=== PATIENT | male | born 1950 | race Caucasian/White ===

== ENCOUNTER 2025-04-12 12:49 | Emergency (ER) | payer OTHER, SELFPAY ==
[2025-04-12 12:51] VITALS: BP 123/80
[2025-04-12 13:08] LABS: Urine Character Mucous (Clear)
[2025-04-12 14:27] LABS: Urine Red Blood Cell >100 /HPF (0-2)
[2025-04-12 16:10] VITALS: BP 158/83
--- NOTE | 2025-04-12 16:10 | ED.GENMED ---
History of Present Illness
General
Chief Complaint: Male Genito-Urinary Symptoms
Source: patient
Time Seen by Provider: 04/12/25 15:50
History of Present Illness
History of Present Illness:
74-year-old male with past medical history of kidney stones presenting to the emergency department for evaluation of hematuria noting that he is passed multiple clots over the last 3 days with no other associated symptoms other than maybe some
urinary frequency today. Patient states that this does seem a little bit different than his history of kidney stones as he has never had the amount of clots before. Denies any fevers, chills, rigors, back or flank pain, nausea or vomiting. A
couple of weeks ago was started on an aspirin by his neurologist, patient and son unable to elaborate further as to why this was started. Denies any testicular pain or edema.
Past History
Past History
ED Past Medical History: Other (kidney stones)
ED Past Surgical History: None
Social History
Tobacco: Former smoker (Quit over 50 years ago)
Alcohol: None
Drug: None
Personal:
Living: with family
Review of Systems
Review of Systems
All Other Systems: ROS reviewed and negative except as documented in HPI and ROS
Phy Exam
Physical Exam
Physical Exam:
GENERAL: Alert , in no apparent distress
EYE: clear conjunctiva b/l
HEAD: NCAT
ENT: mmm.
CARDIAC: Regular rate and rhythm .
LUNGS: Clear breath sounds bilaterally, no acute respiratory distress, no wheezes/rales/rhonchi
ABDOMEN: Soft, without focal tenderness, no r/g, no cvat
NEUROLOGICAL: Alert and oriented
SKIN: Warm and dry, skin intact.
MUSCULOSKELETAL: well perfused.
PSYCH: Normal and appropriate interaction.
Scores
Heart Failure Risk
Heart Failure Risk Score: Not Applicable
Heart Score for Chest Pain Patients
STEMI patient?: Not applicable
Withdrawal Assessment of Alcohol
Withdrawal Assessment Completed?: Not applicable
Course
Orders/Labs/Results
Orders:
Orders
04/12/25 12:58
UA Reflex to Culture [Urinalysis Reflex To Culture] Urgent
Date Specimen was Collected: 04/12/25
Time Specimen was Collected: 12:54
Urine Microscopic Reflex Cult Urgent
Urine Culture Urgent
MARCOS Source: U
Specimen Description:
Date Specimen was Collected: 04/12/25
Time Specimen was Collected: 12:54
04/12/25 15:51
CT Abd/pel Without Iv Or Oral Urgent
Comment:
Reason For Exam: 3 days hematuria
04/12/25 16:18
Basic Metabolic Panel Urgent
Complete Blood Count/With Diff Urgent
PTT Urgent
Prothrombin Time Urgent
Abnormal Lab Results
04/12/25 04/12/25
12:58 16:18
Absolute Lymphs (auto) 1.0 L 10^3/uL
(1.2-3.4)
Neutrophils % 79.9 H %
(42.2-75.2)
Lymphocytes % 12.6 L %
(20.5-51.1)
Glucose 106 H mg/dl
(70-99)
Ur Occult Blood Reflex 4+ A
(Negative)
Leukocyte Esterase Rfl 2+ A
(Negative)
Urine RBC >100 A /HPF
(0-2)
Urine Albumin (Reflex) 3+ A
(Neg - Trace)
04/12/25 16:18
04/12/25 16:18
Vital Signs
Initial and Last Documented VS:
Initial Vital Signs
Temp Pulse Resp BP Pulse Ox
98.2 F 75 16 123/80 98
04/12/25 12:51 04/12/25 12:51 04/12/25 12:51 04/12/25 12:51 04/12/25 12:51
Last Documented Vital Signs
Temp Pulse Resp BP Pulse Ox
98.2 F 75 16 158/83 98
04/12/25 12:51 04/12/25 12:51 04/12/25 12:51 04/12/25 16:10 04/12/25 16:20
MDM/Problems Addressed
Differential Diagnosis Includes:
Nephrolithiasis/ureterolithiasis
Urinary tract infection
Malignancy
Hemorrhagic cystitis
BPH
Prostatitis
Anemia
MDM/Problems Addressed:
74-year-old male presenting to the ER for evaluation of hematuria since Sunday, questionable urinary frequency today although patient does note he has been drinking more water than usual. Recently started on aspirin for unknown reasons. History of
multiple kidney stones but without pain here. Will check labs and CT scan, urinalysis obtained from triage shows 4+ microscopic blood, greater than 100 RBCs, 2+ leukocytes, culture pending.
*Radiology
Radiology exam reviewed: radiology read reviewed
*Pulse Oximetry
SaO2: 98
Oxygen Mode of Delivery: Room air
Patient hypoxic: no
*Critical Care Note
Total Time (30-74mins, 75-104mins- exclusive of procedures): Not Applicable
Patient Management
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
Escalation/DeEscalation of care consider admission/obs:
CT findings noted for bilateral nephrolithiasis. Other findings discussed with patient and provided with printout of the CT scan reports. I did notify urology and provided the patient with the urology information for close follow-up. Patient and
family aware of return precautions to the ER. Patient is otherwise stable discharge home.
ED Attending Note
-
Portions of this chart may have been created with voice recognition software.� Occasional wrong word or��sound alike� substitutions may have occurred due to the inherent limitations of voice recognition software.
Discharge Plan
Departure
Patient Disposition: Home (Routine Discharge)
Date of Disposition: 04/12/25
Time of Disposition: 18:18
Patient with high blood pressure during this ER visit?: Yes
Discharge Problem:
Hematuria
Instructions: Blood in the Urine (Hematuria), Adult (DC)
Prescriptions:
New
cefdinir 300 mg capsule
300 mg PO BID 7 Days Qty: 14 0RF
Referrals:
David Mcallister MD [Family Provider, Internal Medicine]
Ajay Ya MD [Active, Urology]
Interventions
Interventions:
*Risk Screen - Suicide Last Done: 04/12/25 12:51
*General Assessment Last Done: 04/12/25 12:51
*Neglect/Abuse Screening Last Done: 04/12/25 12:51
*ED- Fall Risk Assessment Last Done: 04/12/25 16:20
*ED COVID-19 Vaccine History Last Done: 04/12/25 16:20
*Nursing Disposition Last Done: 04/12/25 18:50
ED-Male Genitourinary Assessment Last Done: 04/12/25 16:20
Discharge Date and Time
Discharge Date/Time: 04/12/25 18:50
Print Language: CROATIAN
[2025-04-12 16:19] VITALS: BMI 17.8
[2025-04-12 16:31] LABS: Hematocrit 44.8 % (39.0-52.0); Hemoglobin 15.7 g/dL (13.0-18.0); Mean Corp Hgb Conc. 35.0 g/dL (33.0-37.0); Mean Corpuscular Volume 84.7 fL (80.0-94.0); Nucleated Red Blood Cells % 0 % (-); Platelet Count 177 10^3/uL (130-400); Red Cell Dist. Width 13.2 % (11.5-14.5)
[2025-04-12 16:40] LABS: APTT 25.7 Sec (23.4-35.0); INR 1.01; PT 13.6 Sec (11.4-14.6)
[2025-04-12 16:45] LABS: Blood Urea Nitrogen 17 mg/dl (9-20); Calcium 10.0 mg/dl (8.4-10.2); Carbon Dioxide 30 mmol/L (22-30); Chloride 105 mmol/L (98-107); Estimated Creatinine Clearance 59 ml/min; Glucose 106 mg/dl (70-99); Potassium 5.1 mmol/L (3.5-5.1); Sodium 140 mmol/L (135-145); eGFR > 60.00
== END 2025-04-12 18:50 | disposition home or self-care (01) ==
LOC: EMR 12:49
PROVIDERS: Emergency Medicine; Physician Assistant Medical; EMERGENCY PHYSICIAN Emergency Medicine; FAMILY PHYSICIAN Internal Medicine
DX: R31.9 Hematuria, unspecified (principal); R35.0 Frequency of micturition; R03.0 Elevated blood-pressure reading, without diagnosis of hypertension; Z87.442 Personal history of urinary calculi; Z87.891 Personal history of nicotine dependence
CPT/HCPCS: 99284; 74176; 80048; 81003; 81015; 85025; 85610; 85730; 87086

== ENCOUNTER 2025-05-22 23:27 | Inpatient (IN) | payer OTHER, SELFPAY ==
[2025-05-22 14:30] VITALS: BP 111/80
[2025-05-22 14:49] LABS: Hematocrit 47.5 % (39.0-52.0); Hemoglobin 16.3 g/dL (13.0-18.0); Mean Corp Hgb Conc. 34.3 g/dL (33.0-37.0); Mean Corpuscular Volume 83.0 fL (80.0-94.0); Nucleated Red Blood Cells % 0 % (-); Platelet Count 301 10^3/uL (130-400); Red Cell Dist. Width 12.4 % (11.5-14.5)
--- NOTE | 2025-05-22 18:14 | ED.GENMED ---
History of Present Illness
General
Chief Complaint: Abdominal Symptoms
Source: patient and family
Exam Limitations: none
Time Seen by Provider: 05/22/25 17:58
History of Present Illness
History of Present Illness:
74yoM with a history of hypertension, hyperlipidemia, and a prior colorectal abscess presenting with his for evaluation of diarrhea. Symptoms have been ongoing for the past 3 weeks. He initially started with constipation which transition to
diarrhea. He is having 15-20 watery bowel movements a day. He started to notice a small amount of blood mixed in with his stool yesterday. He is also having decreased appetite has lost 10 pounds unintentionally. Patient reports a 'feeling' in
his lower abdomen but denies any overt pain. 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 Family is worried that he has this again. He denies any fevers, chills, vomiting, urinary symptoms.
Past History
Past History
ED Past Medical History: Other (kidney stones)
ED Past Surgical History: None
Social History
Tobacco: Former smoker (Quit over 50 years ago)
Alcohol: None
Drug: None
Personal:
Living: with family
Phy Exam
General Physical Exam
General Presentation: well appearing and no apparent distress
General Skin: warm and dry
General Habitus: normal
General Mental: alert
ENT Exam
ENT Exam: normocephalic
Cardiovascular Exam
Cardiovascular Exam: regular rate/rhythm
Pulmonary Exam
Pulmonary Exam: lungs clear, no respiratory distress, no rales, no crackles, no rhonchi and no wheezing
Gastrointestinal Exam
Gastrointestinal Exam: non tender, soft and non distended
Neurological Exam
Neurological Exam: alert
Pranav Coma Scale
Eye Opening: Spontaneous
Verbal Response: Oriented
Motor Response: Obeys Commands
GCS Total Score: 15
Skin Exam
Skin Exam: normal color and warm/dry
Psychiatric Exam
Psychiatric Exam: normal mood/affect
Course
Orders/Labs/Results
Orders:
Orders
05/22/25 14:42
Complete Blood Count/With Diff Urgent
05/22/25 15:17
C difficile Antigen & Toxins Urgent
MARCOS Source: Feces/Stool
Specimen Description:
Date Specimen was Collected: 05/22/25
Time Specimen was Collected: 14:46
Stool Culture Urgent
MARCOS Source: Feces/Stool
Specimen Description:
Date Specimen was Collected: 05/22/25
Time Specimen was Collected: 14:46
05/22/25 18:13
Add On- LAB Urgent
Tests Added?: mag, lipase
CT Abd/pel W Iv And Oral Contr Urgent
Comment:
Reason For Exam: diarrhea, lower abd discomfort
0.9% Sodium Chloride 500 ml [Nss] 500 ml IV BOLUS
Iohexol [Omnipaque] See Protocol PO NOW STA
05/22/25 18:22
Insulin Human Regular [Novolin R] 5 units IV NOW STA
05/22/25 18:43
Comprehensive Metabolic Panel Urgent
Lactate Level [Lactic Acid] Urgent
Lipase Urgent
Comment: ADD ON
Magnesium Urgent
Comment: ADD ON
05/22/25 22:20
0.9% Sodium Chloride 500 ml [Nss] 500 ml IV BOLUS
Piperacillin/Tazo 3.375 Gram [Zosyn] 3.375 gram in 50 ml IV NOW
05/22/25 23:08
Calprotectin, Fecal [S] Urgent
Norovirus by PCR Urgent
MARCOS Source: Feces/Stool
Specimen Description:
Ova & Parasites Giardia/Crypto AG [Giardia/Cryptosporidium Ag] Routine
MARCOS Source: Feces/Stool
Specimen Description:
Stool For WBC Urgent
MARCOS Source: Feces/Stool
Specimen Description:
Abnormal Lab Results
05/22/25 05/22/25
14:42 18:43
WBC 16.1 H 10^3/uL
(4.8-10.8)
Abs Immat Gran (auto) 0.1 H 10^3/uL
(0-0.05)
Absolute Neuts (auto) 13.5 H 10^3/uL
(1.4-6.5)
Absolute Monos (auto) 1.0 H 10^3/uL
(0.1-0.6)
Immature Gran % 0.6 H %
(0-0.5)
Neutrophils % 83.7 H %
(42.2-75.2)
Lymphocytes % 8.7 L %
(20.5-51.1)
Sodium 134 L mmol/L
(135-145)
Carbon Dioxide 18 L mmol/L
(22-30)
Glucose 101 H mg/dl
(70-99)
Total Protein 5.9 L g/dl
(6.3-8.2)
Lipase 22 L U/L
(23-300)
05/22/25 14:42
05/22/25 18:43
Vital Signs
Initial and Last Documented VS:
Initial Vital Signs
Temp Pulse Resp BP Pulse Ox
97.6 F 97 16 111/80 98
05/22/25 14:30 05/22/25 14:30 05/22/25 14:30 05/22/25 14:30 05/22/25 14:30
Last Documented Vital Signs
Temp Pulse Resp BP Pulse Ox
98.2 F 88 16 119/75 97
05/22/25 18:47 05/22/25 18:47 05/22/25 18:47 05/22/25 22:29 05/22/25 22:31
MDM/Problems Addressed
Differential Diagnosis Includes:
74yoM here with diarrhea x 3 weeks with weight loss and decreased appetite. Hx of colorectal abscess in 2021 which required colostomy which has since been reversed. VSS. He is non-toxic appearing and abdominal exam is benign. Differential diagnosis
includes but is not limited to: viral illness, C.diff, other infectious diarrhea, dehydration
Initial ED plan: Labs obtained in triage reveal a WBC of 16.1. Remainder of labs overall unremarkable. C.diff testing is negative and stool culture is pending. Will add lactic acid and CT abdomen with IV/p.o. contrast. IV fluid bolus.
*Pulse Oximetry
SaO2: 98
Oxygen Mode of Delivery: Room air
Patient hypoxic: no (98%)
*Critical Care Note
Total Time (30-74mins, 75-104mins- exclusive of procedures): Not Applicable
Update Note
Update Note:
CT shows pancolitis. No evidence of pneumatosis and lactate within normal limits. IV Zosyn ordered and patient admitted for further evaluation and management.
ED Attending Note
-
Portions of this chart may have been created with voice recognition software.� Occasional wrong word or��sound alike� substitutions may have occurred due to the inherent limitations of voice recognition software.
Discharge Plan
Departure
Patient Disposition: Admit
Date of Disposition: 05/22/25
Time of Disposition: 22:22
Presentation/result/management discussed w/ accepting MD/DO: Hospitalist
Discharge Problem:
Pancolitis
Prescriptions:
No Action
atorvastatin 40 mg Tablet
40 mg PO DAILY
donepezil [Aricept] 10 mg Tablet
10 mg PO HS
amlodipine 5 mg Tablet
5 mg PO DAILY
bupropion HCl 150 mg Tablet Extended Release 24 Hr
150 mg PO DAILY
B12 5,000-100 mcg Lozenge
1 aleja SUBLINGUAL DAILY
Referrals:
David Mcallister MD [Family Provider, Internal Medicine]
Interventions
Interventions:
*Risk Screen - Suicide Last Done: 05/22/25 14:30
*General Assessment Last Done: 05/22/25 20:00
*Neglect/Abuse Screening Last Done: 05/22/25 14:30
*ED- Fall Risk Assessment Last Done: 05/22/25 20:00
*ED COVID-19 Vaccine History Last Done: 05/22/25 20:00
QH-Mdaztc-Opivajfkce Assessment Last Done: 05/22/25 20:00
Discharge Date and Time
Print Language: SLOVENIAN
[2025-05-22 18:46] VITALS: BP 125/80
[2025-05-22 18:47] VITALS: BP 125/80; BMI 16.2
[2025-05-22] MEDS: NSS 500 IV ×2 (18:48→22:25)
[2025-05-22] MEDS: OMNIPAQUE 50 ML PO (18:48)
[2025-05-22 19:00] VITALS: BP 126/78
[2025-05-22 19:12] LABS: ALT (SGPT) 14 U/L (0-50); AST (SGOT) 18 U/L (17-59); Albumin 3.7 g/dl (3.5-5.0); Alkaline Phosphatase 80 U/L (38-126); Blood Urea Nitrogen 16 mg/dl (9-20); Calcium 8.6 mg/dl (8.4-10.2); Carbon Dioxide 18 mmol/L (22-30); Chloride 100 mmol/L (98-107); Estimated Creatinine Clearance 40 ml/min; Glucose 101 mg/dl (70-99); Lipase 22 U/L (23-300); Magnesium 1.8 mg/dl (1.6-2.3); Potassium 4.3 mmol/L (3.5-5.1); Sodium 134 mmol/L (135-145); Total Protein 5.9 g/dl (6.3-8.2); eGFR > 60.00
[2025-05-22 20:00] VITALS: BP 123/76
--- NOTE | 2025-05-22 21:00 | EDRN ---
Patient ambulated to the restroom and back in bed updated patient and family on labs and then patient to CT
--- NOTE | 2025-05-22 22:13 | EDRN ---
PA in at bedside going over results with patient
[2025-05-22] MEDS: ZOSYN 50 IV (22:26)
[2025-05-22 22:29] VITALS: BP 119/75
--- NOTE | 2025-05-22 22:59 | HPS.HSE ---
Family Physician
-
Family Physician: David Mcallister
Chief Complaint
-
Diarrhea
History of Present Illness
This is a 74-year-old with past medical history of hyperlipidemia, hypertension, dementia who had a prior history of rectal abscess status post bowel resection presenting to the emergency department with 3 weeks of ongoing diarrhea.
Patient reports that he has loose bowel movements to watery bowel movements several times a day reporting up to 10 times and sometimes even more. Reports that there has been no mucus or no blood in the stool. Has not been any melena. He states is
not associated with any abdominal pain nausea or vomiting. He denies having any fevers or chills. He has no recent travel. He denies any sick contact. His has had no symptoms. He denies any recent antibiotic use.
Patient reported that his last colonoscopy was about 2 years ago for which he had the abscess detected but denied any findings of inflammatory bowel disease at that time.
In the emergency department he was afebrile, blood pressure was 120/75 with a pulse of 88. His CBC shows a white count of 16.1, hemoglobin and platelets were 16.3 and 300. His electrolytes were stable and BUN/creatinine were unremarkable.
CT of the abdomen pelvis shows pancolitis with no evidence of pneumatosis, no bowel obstruction.
Medical History
Past Medical History
Past Medical History: Reports Dementia, HTN and Hypercholesterolemia
Past Surgical History: Reports Bowel Resection
Social History
Tobacco: Non-smoker
Alcohol: None
Drug: None
Family History
Family History: Not pertinent
Allergies / Home Medications
Allergies reflects when Allergies were last updated in [facility].
Home Medications with original date entered in [facility]
Allergy/Medication List:
Allergies
Allergy/AdvReac Type Severity Reaction Status Date / Time
No Known Allergies Allergy Verified 05/22/25 14:30
Home Medications
amlodipine 5 mg tablet 5 mg PO DAILY 05/22/25
atorvastatin 40 mg tablet 40 mg PO DAILY 05/22/25
bupropion HCl 150 mg 24 hr tablet, extended release 150 mg PO DAILY 05/22/25
cyanocobalamin (B12)-cobamamide 5,000 mcg-100 mcg sublingual lozenge (B12) 1 aleja sublingual DAILY 05/22/25
donepezil 10 mg tablet (Aricept) 10 mg PO HS 05/22/25
Review of Systems
-
Constitutional: Reports No Symptoms
EENT: Reports No Symptoms
Respiratory: Reports No Symptoms
Cardiac: Reports No Symptoms
Abdomen/GI: Reports Diarrhea
: Reports No Symptoms
Musculoskeletal: Reports No Symptoms
Skin: Reports No Symptoms
Neurological: Reports No Symptoms
Endocrine: Reports No Symptoms
Hematologic/Lymphatic: Reports No Symptoms
Psych: Reports No Symptoms
Physical Exam
Vital Signs
Vital Signs
Temp Pulse Resp BP Pulse Ox
98.2 F 88 16 119/75 97
05/22/25 18:47 05/22/25 18:47 05/22/25 18:47 05/22/25 22:29 05/22/25 22:31
Physical Exam
General: Well Developed, Well Nourished and No Apparent Distress
HEENT: NormoCephalic, Moist mucous membranes and Atraumatic
Respiratory: Clear
Cardiac: S1/S2 and Regular Rhythm; No Murmur or Rub
GI: Soft, Non Tender, Non Distended and Normal Bowel Sounds; No Organomegaly
Rectal: Deferred by Provider
Musculoskeletal: No Clubbing, No Cyanosis and No Edema
Skin: No Rash
Neuro: AO x 3 and Nonfocal/grossly intact
Laboratory Results
-
05/22/25 14:42
05/22/25 18:43
Laboratory Results
Lactic Acid 1.1 mmol/L (0.7-2.0) 05/22/25 18:43
Total Bilirubin 1.1 mg/dl (0.2-1.3) 05/22/25 18:43
AST 18 U/L (17-59) 05/22/25 18:43
ALT 14 U/L (0-50) 05/22/25 18:43
Alkaline Phosphatase 80 U/L (38-126) 05/22/25 18:43
Lipase 22 U/L (23-300) L 05/22/25 18:43
Data Reviewed
-
CT Scan: Report Reviewed by me
Lab Data: Labs Reviewed by me
Old Records: Reviewed
Impression/Plan
-
IMPRESSION:
74-year-old with approximately 3 weeks of watery diarrhea moving bowel movements up to 10 times a day. He is hemodynamically stable at this time and afebrile. He is nontoxic-appearing but does look frail and dehydrated. Labs notable for
leukocytosis to 16.1 CT scan with pancolitis. C. difficile is negative. Stool cultures are otherwise pending. Patient had a CT of the abdomen pelvis without contrast 1 month ago which showed no acute abnormalities at that time. He also reported
having a colonoscopy about 2 years ago which showed a abscess but no other findings. He is status post bowel resection. Clinical picture is concerning for acute to subacute infectious diarrhea versus inflammatory bowel disease. Denies any prior
history of diarrheal illnesses, food intolerance or celiac disease.
PLAN:
Persistent diarrhea - Pancolitis on CT scan. Cdiff AG & toxin negative. No offending medications
- admit to med/surg
- stool cultures pending
- check fecal calprotectin, esr, ova&parasite and wbc
- IV fluids continued for now
- if negative cultures and IBD, can start immodium
- will d/c zosyn and start on flagyl/ceftriaxone to cover possible O&P
- GI consult
DVT PPX - lovenox sq
Code status - Full code
[2025-05-23 00:23] VITALS: BP 140/77
--- NOTE | 2025-05-23 00:25 | PTCARENOTE ---
Pt arrived to 3 west from ED via stretcher. Pt able to walk into bed 321 with staff assistance. Pt AAOx3, oriented to room w/ call whaley within reach. Care ongoing.
[2025-05-23 00:29] VITALS: BMI 15.8; BMI 16.1
[2025-05-23] MEDS: LR 1000 IV (00:32)
[2025-05-23] MEDS: FLAGYL 500 MG 100 IV ×3 (03:29→19:42)
[2025-05-23] MEDS: ROCEPHIN 1000 MG IV (03:29)
[2025-05-23] MEDS: STERILE WATER FOR INJECTION 10 ML IV (03:29)
[2025-05-23] MEDS: FLUSH (NSS) 1 FLUSH IV (03:30)
--- NOTE | 2025-05-23 06:26 | CON.GI ---
Addendum entered and electronically signed by Isaiah Katz MD 05/23/25 11:15:
I saw and examined the patient.
The PA's note was reviewed and I agree with the note.
Comment:
74-year-old male HTN, hyperlipidemia, prior bowel resection who presents with subacute diarrhea. Onset of his diarrhea was about 3 weeks ago, going up to 10-15 times per day. Watery without blood. Denies pain or fever. No travel history or sick
contacts. CT on admission showed pancolitis. Has mild leukocytosis. C. difficile is negative, other stool studies are pending. Is reporting that he had colonoscopy few years ago which was unremarkable. The etiology of his pancolitis is unclear
at this time. Continue supportive management. May need flx sig if his diarrhea doesn't improve.
Addendum entered and electronically signed by ARMEN Crowe 05/23/25 09:48:
consider OP surgical eval for spegelian hernia noted on imaging
Addendum entered and electronically signed by ARMEN Crowe 05/23/25 08:27:
CRP 15.5 and ESR pending
Original Note:
Consultation
-
Date/Time Consultation Requested: 05/23/25 0020
Date/Time Consultation Performed: 05/23/25 0730
Requesting Provider: rowan Keller MD
Performing Provider: ARMEN Pina, Isaiah Katz MD
Reason for Consultation: diarrhea
Medical History
Chief Complaint / HPI
History of Present Illness:
Pt is a 74yo with hx dementia, HTN, hyperlipidemia, renal stones, prior rectal abscess, prior bowel resection, with onset of diarrhea. On admission CT completed with noted pancolitis, no bowel obstruction, non obstructing renal calculi, renal cyst,
GB adenomyomatosis and left spigelian hernia. Labs notable for WBC 16,100, Na 134, glucose 101 otherwise stable labs. C-diff neg other cx pending.
In reviewed with patient he began with diarrhea several day ago with wt loss and nocturnal stools. He has some limited history with dementia but admits to regular stools prior to onset. He denies travel, abx, or sick contacts. No new
medications. He otherwise denies dysphagia, GERD, nausea, vomiting, abdominal pain, blood or black in stools. Pt unsure about colonoscopy but per chart last colonoscopy was 2 years ago with abscess noted. Unsure about prior EGD.
Past Medical History
Past Medical History: HTN, Hypercholesterolemia, Psychiatric (dementia ) and Other (renal stones, hematuria, rectal abscess)
Past Surgical History: Bowel Resection
Social History
Alcohol: Former
Drug: None
Personal:
Living: With Family
Employment: Retired
Family History
Family History: Other (denies family hx colon Ca or polyps)
Allergies / Home Medications
Allergy/AdvReac Type Severity Reaction Status Date / Time
No Known Allergies Allergy Verified 05/22/25 14:30
�Medication �Instructions �Recorded
amlodipine 5 mg tablet 5 mg PO DAILY 05/22/25
atorvastatin 40 mg tablet 40 mg PO DAILY 05/22/25
bupropion HCl 150 mg 24 hr tablet, 150 mg PO DAILY 05/22/25
extended release
cyanocobalamin (B12)-cobamamide 1 aleja sublingual DAILY 05/22/25
5,000 mcg-100 mcg sublingual
lozenge (B12)
donepezil 10 mg tablet (Aricept) 10 mg PO HS 05/22/25
Review of Systems
-
History Source: Patient
Constitutional: Reports Weight Loss
EENT: Reports No Symptoms
Respiratory: Reports No Symptoms
Cardiac: Reports No Symptoms
Abdomen/GI: Reports Diarrhea
: Reports No Symptoms
Musculoskeletal: Reports No Symptoms
Skin: Reports No Symptoms
Neurological: Reports Weakness
Endocrine: Reports No Symptoms
Hematologic/Lymphatic: Reports No Symptoms
Vital Signs
Temp Pulse Resp BP Pulse Ox
97.1 F 73 16 140/77 97
05/23/25 00:23 05/23/25 00:23 05/23/25 00:23 05/23/25 00:23 05/23/25 00:23
Physical Exam
Exam
General: Well Developed, Well Nourished and No Apparent Distress
HEENT: Normocephalic and Anicteric
Respiratory: Clear
Cardiac: Regular Rhythm
GI: Soft and Non Distended
Musculoskeletal: No Clubbing and No Cyanosis
Skin: Warm and Dry
Neuro: Awake, Alert and Other (forgetful at times )
Psych: Calm
Results
WBC 16.1 10^3/uL (4.8-10.8) H 05/22/25 14:42
Hgb 16.3 g/dL (13.0-18.0) 05/22/25 14:42
Hct 47.5 % (39.0-52.0) 05/22/25 14:42
MCV 83.0 fL (80.0-94.0) 05/22/25 14:42
Plt Count 301 10^3/uL (130-400) 05/22/25 14:42
Absolute Neuts (auto) 13.5 10^3/uL (1.4-6.5) H 05/22/25 14:42
Sodium 134 mmol/L (135-145) L 05/22/25 18:43
Potassium 4.3 mmol/L (3.5-5.1) 05/22/25 18:43
Chloride 100 mmol/L (98-107) 05/22/25 18:43
Carbon Dioxide 18 mmol/L (22-30) L 05/22/25 18:43
BUN 16 mg/dl (9-20) 05/22/25 18:43
Creatinine 1.2 mg/dL (0.7-1.3) 05/22/25 18:43
Calcium 8.6 mg/dl (8.4-10.2) 05/22/25 18:43
Total Bilirubin 1.1 mg/dl (0.2-1.3) 05/22/25 18:43
AST 18 U/L (17-59) 05/22/25 18:43
ALT 14 U/L (0-50) 05/22/25 18:43
Alkaline Phosphatase 80 U/L (38-126) 05/22/25 18:43
Lipase 22 U/L (23-300) L 05/22/25 18:43
Diagnostic Image Results:
05/22/25 CT Abd/pel W Iv And Oral Contr
Pancolitis. No evidence of pneumatosis.
No bowel obstruction.
Nonobstructing renal calculi. Renal cysts.
Probable gallbladder adenomyomatosis.
3 cm left spigelian hernia.
Prior GI Procedures:
EGD: ? pt unsure
Colonoscopy: 2 years ago
Assessment / Plan
-
Pt is a 74yo with hx dementia, HTN, hyperlipidemia, renal stones, prior rectal abscess, prior bowel resection with onset of diarrhea. On admission CT completed with noted pancolitis, no bowel obstruction, non obstructing renal calculi, renal cyst,
GB adenomyomatosis and left spigelian hernia. Labs notable for WBC 16,100, Na 134, glucose 101 otherwise stable labs. C-diff neg other cx pending.
-diarrhea
-pancolitis
-leukocytosis
-CT with spigelian hernia
other med problems:
-dementia
-HTN
-Hyperlipidemia
-renal stones
-hx rectal abscess
PLAN:
etiology of diarrhea/pancolitis related to infectious etiology with leukocytosis, vs other less likely IBD with sudden onset but in differential
check stools studies
fecal angela pending
trend CBC
monitor stools output
currently full liquid diet
cont abx
I attempted to call and left message to clarify history
-
-
Thank you for consultation and allowing me to participate in the patient's care. Please call the online [facility] GI physician during the after hours with any questions or concerns.
[2025-05-23 07:37] VITALS: BP 126/71
[2025-05-23 07:40] LABS: C-Reactive Protein 15.50 mg/L (0.0-10.00)
[2025-05-23 07:44] LABS: Blood Urea Nitrogen 10 mg/dl (9-20); Calcium 7.9 mg/dl (8.4-10.2); Carbon Dioxide 17 mmol/L (22-30); Chloride 104 mmol/L (98-107); Estimated Creatinine Clearance 52 ml/min; Glucose 66 mg/dl (70-99); Potassium 3.7 mmol/L (3.5-5.1); Sodium 134 mmol/L (135-145); eGFR > 60.00
[2025-05-23 07:45] LABS: Hematocrit 39.9 % (39.0-52.0); Hemoglobin 13.8 g/dL (13.0-18.0); Mean Corp Hgb Conc. 34.6 g/dL (33.0-37.0); Mean Corpuscular Volume 82.6 fL (80.0-94.0); Platelet Count 228 10^3/uL (130-400); Red Cell Dist. Width 12.3 % (11.5-14.5)
[2025-05-23] MEDS: LIPITOR 40 MG PO (08:22)
[2025-05-23] MEDS: NORVASC 5 MG PO (08:22)
[2025-05-23] MEDS: WELLBUTRIN XL (24 hour extended release) 150 MG PO (08:22)
[2025-05-23 08:31] LABS: Ferritin 219.0 ng/ml (17.9-464.0)
--- NOTE | 2025-05-23 11:12 | W.PN.HOSP.TC ---
Today's Communication/Plan
-
Monitor vital signs
see plan
Monitor leukocytosis
Continue with antibiotics
GI following
Follow stool studies
IVF
Assessment / Plan
Assessment / Plan
General: Well Developed, Well Nourished and No Apparent Distress
HEENT: NormoCephalic, Moist mucous membranes and Atraumatic
Respiratory: Clear
Cardiac: S1/S2 and Regular Rhythm; No Murmur or Rub
GI: Soft, Non Tender, Non Distended and Normal Bowel Sounds
Musculoskeletal:No Edema
Neuro: AO x 3 and Nonfocal/grossly intact
Persistent diarrhea - Pancolitis on CT scan. Cdiff AG & toxin negative. No offending medications
- stool cultures pending
- check fecal calprotectin, ova&parasite and wbc
- IV fluids continued for now
- if negative cultures and IBD, can start immodium
crp 15
Continue with ceftriaxone, Flagyl
GI following
CT with spigelian hernia, surgery follow-up outpatient
Currently on fulls, monitor
Hyponatremia
monitor
History of rectal abscess
History of hypertension
Hyperlipidemia
History of renal stones
DVT PPX - lovenox sq
Code status - Full code
Anticipated Discharge: 24 - 48 hours
Subjective/Interval History
-
Date of Service: May 23, 2025
Denies nausea
Objective Data
-
Labs:
Laboratory Results
05/23/25
06:12
WBC 11.4 H
Hgb 13.8
Hct 39.9
Plt Count 228 D
Sodium 134 L
Potassium 3.7
Chloride 104
Carbon Dioxide 17 L
BUN 10
Creatinine 0.9
Glucose 66 L
Calcium 7.9 L
Vital Signs:
Vital Signs
Temp Pulse Resp BP Pulse Ox
97.7 F 66 16 126/71 97
05/23/25 07:37 05/23/25 08:22 05/23/25 07:37 05/23/25 08:22 05/23/25 07:37
[2025-05-23] MEDS: NSS 1000 IV (12:09)
[2025-05-23 15:00] VITALS: BP 101/64
[2025-05-23 17:33] VITALS: BMI 15.8
[2025-05-23] MEDS: LOVENOX 40 MG SC (18:13)
[2025-05-23] MEDS: ARICEPT 10 MG PO (21:00)
[2025-05-23 23:34] VITALS: BP 132/78
[2025-05-24] MEDS: FLAGYL 500 MG 100 IV ×3 (03:14→20:58)
[2025-05-24] MEDS: NSS 1000 IV ×2 (03:14→18:05)
[2025-05-24] MEDS: STERILE WATER FOR INJECTION 10 ML IV (03:14)
[2025-05-24] MEDS: ROCEPHIN 1000 MG IV (03:14)
[2025-05-24] MEDS: FLUSH (NSS) IV (03:15)
[2025-05-24 07:43] LABS: Blood Urea Nitrogen 3 mg/dl (9-20); Calcium 7.8 mg/dl (8.4-10.2); Carbon Dioxide 24 mmol/L (22-30); Chloride 109 mmol/L (98-107); Estimated Creatinine Clearance 67 ml/min; Glucose 85 mg/dl (70-99); Potassium 3.3 mmol/L (3.5-5.1); Sodium 137 mmol/L (135-145); eGFR > 60.00
[2025-05-24 07:49] LABS: Hematocrit 37.4 % (39.0-52.0); Hemoglobin 13.0 g/dL (13.0-18.0); Mean Corp Hgb Conc. 34.8 g/dL (33.0-37.0); Mean Corpuscular Volume 82.7 fL (80.0-94.0); Platelet Count 180 10^3/uL (130-400); Red Cell Dist. Width 12.3 % (11.5-14.5)
[2025-05-24 07:59] VITALS: BP 103/58
[2025-05-24] MEDS: KCL 20 MEQ PO (08:59)
[2025-05-24] MEDS: NORVASC 5 MG PO (08:59)
[2025-05-24] MEDS: VITAMIN B-12 1000 MCG PO (08:59)
[2025-05-24] MEDS: LIPITOR 40 MG PO (09:15)
[2025-05-24] MEDS: WELLBUTRIN XL (24 hour extended release) 150 MG PO (09:15)
--- NOTE | 2025-05-24 09:42 | W.PN.HOSP.TC ---
Today's Communication/Plan
-
Monitor vitals
See plan
Still with ongoing diarrhea
Follow cultures
Possible flex sig with GI if symptoms do not improve
Continue with antibiotics
Assessment / Plan
Assessment / Plan
General: Well Developed, Well Nourished and No Apparent Distress
HEENT: NormoCephalic, Moist mucous membranes and Atraumatic
Respiratory: Clear
Cardiac: S1/S2 and Regular Rhythm; No Murmur or Rub
GI: Soft, Non Tender, Non Distended and Normal Bowel Sounds
Musculoskeletal:No Edema
Neuro: AO x 3 and Nonfocal/grossly intact
Persistent diarrhea - Pancolitis on CT scan. Cdiff AG & toxin negative. No offending medications
- stool cultures pending, negative C. difficile, norovirus. Shigella, Salmonella pending
- check fecal calprotectin, ova&parasite and wbc
- IV fluids continued for now
crp 15
Continue with ceftriaxone, Flagyl
GI following
CT with spigelian hernia, surgery follow-up outpatient
Currently on fulls, monitor
Still has diarrhea, 4 episodes overnight
Possible flex sig with GI if symptoms do not improve
Hyponatremia
monitor
Hypokalemia
Replete
History of rectal abscess
History of hypertension
Hyperlipidemia
History of renal stones
DVT PPX - lovenox sq
Code status - Full code
Anticipated Discharge: Within 24 hours
Subjective/Interval History
-
Date of Service: May 24, 2025
Still has diarrhea
Objective Data
-
Labs:
Laboratory Results
05/24/25
06:54
WBC 6.2
Hgb 13.0
Hct 37.4 L
Plt Count 180 D
Sodium 137
Potassium 3.3 L
Chloride 109 H
Carbon Dioxide 24
BUN 3 L
Creatinine 0.7
Glucose 85
Calcium 7.8 L
Vital Signs:
Vital Signs
Temp Pulse Resp BP Pulse Ox
98.1 F 68 16 129/84 96
05/24/25 07:59 05/24/25 08:59 05/24/25 07:59 05/24/25 08:59 05/24/25 07:59
I&O
05/23/25 05/24/25 05/25/25
06:59 06:59 06:59
Intake Total 840 / 840
Balance 840 / 840
--- NOTE | 2025-05-24 12:29 | W.PN.GI.CBS2 ---
Today's Communication / Plan
-
pancolitis, diarrhea
Assessment / Plan
-
Pt is a 74yo with hx dementia, HTN, hyperlipidemia, renal stones, prior rectal abscess, prior bowel resection with onset of diarrhea. On admission CT completed with noted pancolitis, no bowel obstruction, non obstructing renal calculi, renal cyst,
GB adenomyomatosis and left spigelian hernia. Labs notable for WBC 16,100, Na 134, glucose 101 otherwise stable labs. C-diff neg other cx pending.
He continues to have diarrhea. Giardia/crypto negative. C. difficile/norovirus negative. Salmonella/Shigella culture pending. Campylobacter negative. No WBC in stool. Leukocytosis has resolved. Currently on empirical ABX (ceftriaxone and
metronidazole). Will tentatively plan for flex sigmoidoscopy tomorrow. Change diet to CLD and n.p.o. tomorrow a.m.
Total Time Spent with Patient (in minutes): 35
Subjective
Subjective
Date of Service: May 24, 2025
Patient continues to have diarrhea.
Objective
Data Reviewed
Laboratory Data:
Laboratory Results
05/24/25 06:54
05/24/25 06:54
Laboratory Results
Magnesium 1.8 mg/dl (1.6-2.3) 05/22/25 18:43
Total Bilirubin 1.1 mg/dl (0.2-1.3) 05/22/25 18:43
AST 18 U/L (17-59) 05/22/25 18:43
ALT 14 U/L (0-50) 05/22/25 18:43
Alkaline Phosphatase 80 U/L (38-126) 05/22/25 18:43
Lipase 22 U/L (23-300) L 05/22/25 18:43
Vital Signs and I&O:
Vital Signs
Temp Pulse Resp BP Pulse Ox
98.1 F 68 16 129/84 96
05/24/25 07:59 05/24/25 08:59 05/24/25 07:59 05/24/25 08:59 05/24/25 07:59
I&O
05/23/25 05/24/25 05/25/25
06:59 06:59 06:59
Intake Total 840 / 840
Balance 840 / 840
[2025-05-24 15:35] VITALS: BP 119/69
[2025-05-24] MEDS: LOVENOX 40 MG SC (18:04)
[2025-05-24] MEDS: ARICEPT 10 MG PO (21:00)
[2025-05-24 23:50] VITALS: BP 128/70
[2025-05-25] VITALS (11 sets, daily range): BP systolic 100–149; BP diastolic 66–86
[2025-05-25] MEDS: FLAGYL 500 MG 100 IV ×3 (03:55→20:41)
[2025-05-25] MEDS: FLUSH (NSS) IV (03:55)
[2025-05-25] MEDS: ROCEPHIN 1000 MG IV (03:56)
[2025-05-25] MEDS: STERILE WATER FOR INJECTION 10 ML IV (03:56)
[2025-05-25 08:27] LABS: Hematocrit 38.8 % (39.0-52.0); Hemoglobin 13.4 g/dL (13.0-18.0); Mean Corp Hgb Conc. 34.5 g/dL (33.0-37.0); Mean Corpuscular Volume 82.9 fL (80.0-94.0); Nucleated Red Blood Cells % 0 % (-); Platelet Count 183 10^3/uL (130-400); Red Cell Dist. Width 12.4 % (11.5-14.5)
[2025-05-25 08:44] LABS: Blood Urea Nitrogen < 2 mg/dl (9-20); Calcium 8.0 mg/dl (8.4-10.2); Carbon Dioxide 29 mmol/L (22-30); Chloride 106 mmol/L (98-107); Estimated Creatinine Clearance 79 ml/min; Glucose 84 mg/dl (70-99); Potassium 3.3 mmol/L (3.5-5.1); Sodium 139 mmol/L (135-145); eGFR > 60.00
--- NOTE | 2025-05-25 10:17 | W.PN.HOSP.TC ---
Today's Communication/Plan
-
PRN Imodium
Assessment / Plan
Assessment / Plan
General: Well Developed, Well Nourished and No Apparent Distress
HEENT: NormoCephalic, Moist mucous membranes and Atraumatic
Respiratory: Clear
Cardiac: S1/S2 and Regular Rhythm; No Murmur or Rub
GI: Soft, Non Tender, Non Distended and Normal Bowel Sounds
Musculoskeletal:No Edema
Neuro: AO x 3 and Nonfocal/grossly intact
Persistent diarrhea - Pancolitis on CT scan. Cdiff AG & toxin negative. No offending medications
- negative C. difficile, norovirus. Shigella, Salmonella negative
- check fecal calprotectin, ova&parasite and wbc
Continue with ceftriaxone, Flagyl
GI following
CT with spigelian hernia, surgery follow-up outpatient
Currently on fulls, monitor
Still has diarrhea per staff
Colonoscopy today
Hyponatremia
monitor
Hypokalemia
Replete
add KCl BID
History of rectal abscess
History of hypertension
Hyperlipidemia
History of renal stones
DVT PPX - lovenox sq
Code status - Full code
Total time spent to see the patient, examine the patient, review data and lab result, discuss treatment plan with patient, nursing staff around 55 minutes
Anticipated Discharge: 24 - 48 hours
Subjective/Interval History
-
Date of Service: May 25, 2025
No abd pain
No nausea
Objective Data
-
Labs:
Laboratory Results
05/25/25
07:27
WBC 5.4
Hgb 13.4
Hct 38.8 L
Plt Count 183
Sodium 139
Potassium 3.3 L
Chloride 106
Carbon Dioxide 29
BUN < 2 L
Creatinine 0.6 L
Glucose 84
Calcium 8.0 L
Vital Signs:
Vital Signs
Temp Pulse Resp BP Pulse Ox
98.0 F 59 16 123/69 98
05/25/25 08:25 05/25/25 08:25 05/25/25 08:25 05/25/25 08:25 05/25/25 08:25
I&O
05/24/25 05/25/25 05/26/25
06:59 06:59 06:59
Intake Total 840 / 840 1949
Balance 840 / 840 1949
[2025-05-25] MEDS: WELLBUTRIN XL (24 hour extended release) 150 MG PO (11:32)
[2025-05-25] MEDS: VITAMIN B-12 1000 MCG PO (11:32)
[2025-05-25] MEDS: NORVASC 5 MG PO (11:32)
[2025-05-25] MEDS: LIPITOR 40 MG PO (11:32)
[2025-05-25] MEDS: NSS 1000 IV (11:47)
--- NOTE | 2025-05-25 14:02 | CM ---
Patient seen at bedside
IA completed
Dx: diarrhea
GI consult
Colonoscopy today
Lives with spouse 2 story home, [address], flight of stairs to bed/bath, powder room on 1st floor
PLOF: independent
Denies DME
States had VN in past [facility], states rehab in past does not recall facility
spoke with Estrella
PCP: David Mcallister
Pharmacy: [facility], [place]
PLAN: home, CM to follow for needs
[2025-05-25] MEDS: LOVENOX 40 MG SC (17:38)
[2025-05-25] MEDS: KCL 20 MEQ PO (20:41)
[2025-05-25] MEDS: ARICEPT 10 MG PO (21:34)
[2025-05-26] MEDS: FLAGYL 500 MG 100 IV ×2 (03:46→12:16)
[2025-05-26] MEDS: STERILE WATER FOR INJECTION 10 ML IV (03:46)
[2025-05-26] MEDS: ROCEPHIN 1000 MG IV (03:46)
[2025-05-26] MEDS: FLUSH (NSS) 1 FLUSH IV (03:58)
[2025-05-26 06:07] LABS: Blood Urea Nitrogen 3 mg/dl (9-20); Calcium 7.9 mg/dl (8.4-10.2); Carbon Dioxide 30 mmol/L (22-30); Chloride 105 mmol/L (98-107); Estimated Creatinine Clearance 79 ml/min; Glucose 93 mg/dl (70-99); Potassium 3.3 mmol/L (3.5-5.1); Sodium 138 mmol/L (135-145); eGFR > 60.00
[2025-05-26 07:36] VITALS: BP 125/77
--- NOTE | 2025-05-26 08:09 | PN.CDI ---
Addendum entered and electronically signed by Renetta Quiroga MD 05/26/25 08:52:
Severe Protein Calorie Malnutrition
Original Note:
CDI
- -
CDI:
Physician Documentation Request
Admit Date: 05/22/25 23:27
Dear Doctor Kimber,
Clinical Indicators:
Patient admitted with pancolitis.
BMI 15.8
05/23 note/assessment: Subcutaneous Loss: Orbital - Moderate Muscle Loss Clavicle, Temporal: Moderate
-' Current wt 113 lbs 8 oz; pt appears to have lost 12-17 lbs (9.6%-13% wt change).
In addition, per MD notes 'He is also having decreased appetite has lost 10 pounds
unintentionally.' Intakes not specific prior to admission however pt feels he has had a
poor appetite with <75% intakes for 1 month or greater....did observe appearance of
some protrusion of clavicle, moderate depression amish, orbital. Due to decreased
intakes and observations of fat/muscle loss, pt meeting criteria for severe protein/
calorie malnutrition (ASPEN/AND guidelines, chronic illness).'
Based on the above information and your assessment, which of the following most accurately represents the patient's nutritional status?
Severe Protein Calorie Malnutrition
Other (please specify)
[place] Criteria (ACP Hospitalist 2017)
2 or more criteria must be present for either
non severe or severe malnutrition
Note that the criteria differs related to the
presence of an acute or chronic illness
Chronic Illness
Energy Intake Non Severe: <75% for >1 month
Severe: <75% for >1 month
Weight Loss Non Severe: 5% over 1 month
7.5% over 3 months
10% over 6 months
20% over 1 year
Severe: >5% over 1 month
>7.5% over 3 months
>10% over 6 months
>20% over 1 year
Body Fat Non Severe: Mild Loss
Severe: Severe Loss
Muscle Mass Non Severe: Mild Loss
Severe: Severe Loss
Fluid Accumulation Non Severe: Mild Accumulation
Severe: Moderate to severe
accumulation
Reduced Building Construction Professor Strength Non Severe: N/A
Severe: Measurably reduced
Additional criteria that can be used to Determine if Mild or Moderate Malnutrition (Merck Manual 2018)
Mild Moderate Severe
Albumin gm/dl <3.0 gm/dl <2.5 gm/dl <2.0 gm/dl
Pre Albumin mg/dl <15 gm/dl <10 mg/dl <5.0 mg/dl
BMI <18.5 <17 <16
Use of terms such as suspected, likely, concern for, or probable (associated with a specific diagnosis that is being evaluated, monitored, or treated as if it exists) are acceptable and can be coded in the inpatient setting, when documented at the
time of discharge.
Thank you,
BERKLEY Retana RN
CDI Specialist
available via tiger text
Please use your independent medical judgment in providing your response.
[2025-05-26] MEDS: WELLBUTRIN XL (24 hour extended release) 150 MG PO (08:34)
[2025-05-26] MEDS: KCL 20 MEQ PO (08:35)
[2025-05-26] MEDS: LIPITOR 40 MG PO (08:35)
[2025-05-26] MEDS: VITAMIN B-12 1000 MCG PO (08:35)
[2025-05-26] MEDS: NORVASC 5 MG PO (08:35)
--- NOTE | 2025-05-26 09:27 | W.PN.GI.CBS2 ---
Addendum entered and electronically signed by Joanna Lopez Do, MD 05/26/25 14:04:
I saw and examined the patient.
The BEAD PREPARER's note was reviewed and I agree with the note.
Comment: He ate 80% of breakfast and feels well. No abd pain or N/V. Vitals stable exam NTTP. Labs reviewed
Plan
- Daughter updated by me via phone today
- Given improvements ok for hosp d/c today
- Dr Katz will call pt with path results and discussed if further treatment is needed for colitis
- Tolerating low residue diet and stools now formed
- Our office will call to arrange OV FU with Dr Katz
Will sign off please call for ?
Addendum entered and electronically signed by ARMEN Crowe 05/26/25 12:12:
noted with brown soft stool. Reviewed with hosptialist would be stable for discharge without steroids. I sent message to arrange GI follow up.
Original Note:
Today's Communication / Plan
-
etiology of diarrhea/pancolitis related to infectious etiology, chronic colitis vs other
stool studies neg
fecal angela pending
low residue diet
I asked nursing staff to track stools with volume and consistency
possible discharge later today pending diarrhea -- if persists will review with dr. Kemp for steroid course
OP follow up with surgery with noted spigelian hernia on CT
replete K per medical team
I updated daughter
Assessment / Plan
-
Pt is a 74yo with hx dementia, HTN, hyperlipidemia, renal stones, prior rectal abscess, prior bowel resection with onset of diarrhea. On admission CT completed with noted pancolitis, no bowel obstruction, non obstructing renal calculi, renal cyst,
GB adenomyomatosis and left spigelian hernia. Labs notable for WBC 16,100, Na 134, glucose 101 otherwise stable labs. Stool cx neg.
05/25 colonoscopy to [facility] - Hemorrhoids found on perianal exam.
- The examined portion of the ileum was normal. Biopsied.
- Stool in the entire examined colon.
- Diffuse moderate mucosal changes were found in the entire
examined colon secondary to colitis. Biopsied.
- Internal non-bleeding hemorrhoids.
bx pending
-diarrhea
-pancolitis on CT
-leukocytosis
-CT with spigelian hernia
-persistent hypokalemia
other med problems:
-dementia
-HTN
-Hyperlipidemia
-renal stones
-hx rectal abscess
-on B12 replacement
PLAN:
etiology of diarrhea/pancolitis related to infectious etiology, chronic colitis vs other
stool studies neg
fecal angela pending
low residue diet
I asked nursing staff to track stools with volume and consistency
possible discharge later today pending diarrhea -- if persists will review with dr. Kemp for steroid course
OP follow up with surgery with noted spigelian hernia on CT
replete K per medical team
I updated daughter
Subjective
Subjective
Date of Service: May 26, 2025
still with diarrhea overnight with 2 stools, on low residue diet
Objective
Data Reviewed
Laboratory Data:
Laboratory Results
05/25/25 07:27
05/26/25 05:20
Laboratory Results
Magnesium 1.8 mg/dl (1.6-2.3) 05/22/25 18:43
Total Bilirubin 1.1 mg/dl (0.2-1.3) 05/22/25 18:43
AST 18 U/L (17-59) 05/22/25 18:43
ALT 14 U/L (0-50) 05/22/25 18:43
Alkaline Phosphatase 80 U/L (38-126) 05/22/25 18:43
Lipase 22 U/L (23-300) L 05/22/25 18:43
Vital Signs and I&O:
Vital Signs
Temp Pulse Resp BP Pulse Ox
97.7 F 66 16 125/77 97
05/26/25 07:36 05/26/25 08:35 05/26/25 07:36 05/26/25 08:35 05/26/25 07:36
I&O
05/25/25 05/26/25 05/27/25
06:59 06:59 06:59
Intake Total 1949 960 / 960
Balance 1949 960 / 960
Physical Exam
Physical Exam
HEENT: Anicteric and Moist mucous membranes
Cardiology: Normal Sinus Rhythm
Pulmonary: Clear
GI: Soft, Non Distended and Non Tender
Extremities: No Edema
Neuro: Non Focal
--- NOTE | 2025-05-26 10:09 | W.PN.HOSP.TC ---
Today's Communication/Plan
-
dc
Assessment / Plan
Assessment / Plan
PE:
General: Well Developed, Well Nourished and No Apparent Distress
HEENT: NormoCephalic, Moist mucous membranes and Atraumatic
Respiratory: Clear
Cardiac: S1/S2 and Regular Rhythm; No Murmur or Rub
GI: Soft, Non Tender, Non Distended and Normal Bowel Sounds
Musculoskeletal:No Edema
Neuro: AO x 3 and Nonfocal/grossly intact
Psych: calm
Persistent diarrhea - Pancolitis on CT scan. Cdiff AG & toxin negative. No offending medications
- negative C. difficile, norovirus. Shigella, Salmonella negative
- Seems to improve
had empiric ceftriaxone, Flagyl, not on ABx and he is improving now
CT with spigelian hernia, surgery follow-up outpatient
Currently on diet, tolerating it well
No more diarrhea per staff
Colonoscopy , s/p biopsy
I d/w Dr Kemp, ok to dc, f/u in office.
Hyponatremia
No confusion
Resolved
Hypokalemia
Replete
added KCl BID
History of rectal abscess
History of hypertension
Hyperlipidemia
History of renal stones
DVT PPX - lovenox sq
Code status - Full code
Total discharge time spent to see the patient, examine the patient, review data and lab result, discuss discharge plan with patient, daughter, GI doctor, nursing staff around 65 minutes
Anticipated Discharge: Today
Subjective/Interval History
-
Date of Service: May 26, 2025
Doing better
No abd pain
No diarrhea
Objective Data
-
Labs:
Laboratory Results
05/26/25
05:20
Sodium 138
Potassium 3.3 L
Chloride 105
Carbon Dioxide 30
BUN 3 L
Creatinine 0.6 L
Glucose 93
Calcium 7.9 L
Vital Signs:
Vital Signs
Temp Pulse Resp BP Pulse Ox
97.7 F 66 16 125/77 97
05/26/25 07:36 05/26/25 08:35 05/26/25 07:36 05/26/25 08:35 05/26/25 07:36
I&O
05/25/25 05/26/25 05/27/25
06:59 06:59 06:59
Intake Total 1949 960 / 960
Balance 1949 960 / 960
--- NOTE | 2025-05-26 12:04 | CM ---
Addendum entered by Mckenzie Krishnamurthy 05/26/25 12:06:
to transport
Original Note:
Patient seen at bedside
Discharge today-IMM explained & signed. In chart
spoke with Estrella
does not feel need for vn
PLAN: home, no needs
--- NOTE | 2025-05-26 14:18 | W.DCSUMMARY ---
Discharge Summary
Discharge Data
Date of Admission: 05/22/25
Date of Discharge: 05/26/25
-
Pending Results: No
Hospital Course
74 years old male presented with subacute diarrhea. Onset of his diarrhea was about 3 weeks ago, going up to 10-15 times per day. Non-bloody. Denied pain or fever. No travel history or sick contacts. CT on admission showed pancolitis. Had mild
leukocytosis and hypokalemia. Patient was evaluated by GI doctor. Patient was started on empiric antibiotics with Rocephin and metronidazole. C. difficile came back negative, other stool studies were negative. Potassium replacement was done.
Patient had colonoscopy on May 25 that showed hemorrhoids, diffuse moderate mucosal changes. Patient was started on low residue diet. He had decreasing stool output. White count became normal. Director Dance recommended outpatient
follow-up. There was no indication to start steroids until biopsy result. Patient remained hemodynamically stable. He was able to tolerate diet and ambulate. Patient was discharged home in a stable condition.
Discharge Plan
-
Patient Disposition: Home (Routine Discharge)
Discharge Diagnosis/Procedures: Acute diarrhea/pancolitis related to infectious, will need OP follow up.
-spigelian hernia on CT , follow with surgery
Diet: As tolerated
Referrals:
David Mcallister MD [Family Provider, Internal Medicine]
Isaiah Katz MD [Active, Gastroenterology]
Referral Note: call next week to review colon biopsy. Follow up -3-[address] Katz or INTERNET SALES ASSOCIATE to to review with recent diarrhea.
Saeid Cantu MD [Active, Surgical]
Referral Note: consider surgical evaluation for spigelian hernia noted on CT
Prescriptions:
New
loperamide 2 mg Capsule
2 mg PO Q4HPRN PRN (Reason: diarrhea) Qty: 10 0RF
potassium chloride 20 mEq Tablet,Er Particles/Crystals
20 meq PO BID Qty: 10 0RF
Continued
atorvastatin 40 mg Tablet
40 mg PO DAILY
donepezil [Aricept] 10 mg Tablet
10 mg PO HS
amlodipine 5 mg Tablet
5 mg PO DAILY
bupropion HCl 150 mg Tablet Extended Release 24 Hr
150 mg PO DAILY
B12 5,000-100 mcg Lozenge
1 aleja SUBLINGUAL DAILY
Discharge Orders:
Discharge Patient (As Directed); Ordered 05/26/25
Ordered By: Renetta Quiroga
Discharge Date and Time
Discharge Date/Time: 05/26/25 15:54
Print Language: AZERI
[2025-05-26 14:54] VITALS: BP 125/70; PULSE 69
[2025-05-26 14:57] VITALS: BP 125/70
[2025-05-26 15:19] VITALS: BP 109/63
[2025-05-26 21:57] LABS: Calprotectin, Fecal 308 ug/g (<=49)
== END 2025-05-26 15:54 | disposition home or self-care (01) | DRG 391 ==
LOC: 3 WEST ACU 23:27
PROVIDERS: Internal Medicine; Nurse Practitioner Adult Health; Physician Assistant; ADMITTING PHYSICIAN Internal Medicine; ATTENDING PHYSICIAN Internal Medicine; CONSULT PHYSICIAN Internal Medicine Gastroenterology; EMERGENCY PHYSICIAN Emergency Medicine; FAMILY PHYSICIAN Internal Medicine
PROC: 0DBB8ZX Excision of Ileum, Via Natural or Artificial Opening Endoscopic, Diagnostic (ICD-10-PCS; 2025-05-25)
PROC: 0DBE8ZX Excision of Large Intestine, Via Natural or Artificial Opening Endoscopic, Diagnostic (ICD-10-PCS; 2025-05-25)
DX: K52.9 Noninfective gastroenteritis and colitis, unspecified (principal); E43 Unspecified severe protein-calorie malnutrition; E87.1 Hypo-osmolality and hyponatremia; Z68.1 Body mass index [BMI] 19.9 or less, adult; I10 Essential (primary) hypertension; E87.6 Hypokalemia; E86.0 Dehydration; E78.00 Pure hypercholesterolemia, unspecified; N28.1 Cyst of kidney, acquired; N20.0 Calculus of kidney; K64.0 First degree hemorrhoids; Z87.891 Personal history of nicotine dependence; Z79.899 Other long term (current) drug therapy
CPT/HCPCS: 74177; 80048; 80053; 82728; 83605; 83690; 83735; 83993; 85025; 85027; 85652; 86140; 87045; 87046; 87077; 87324; 87328; 87329; 87427; 87449; 87798; 88305; 89055; 96361; 96365; 96375; 97162; 97166; 99285; Q9967

== ENCOUNTER → 2025-06-12 15:32 | Outpatient (REF) | payer OTHER, SELFPAY | LOC: RAD 15:32 | PROVIDERS: ATTENDING PHYSICIAN Internal Medicine Gastroenterology; FAMILY PHYSICIAN Internal Medicine | DX: K52.9 Noninfective gastroenteritis and colitis, unspecified (principal) | CPT/HCPCS: 74177; Q9967 ==